=== PATIENT | female | born 1965 | race Caucasian/White ===

== ENCOUNTER 2016-10-31 13:15 | Emergency (ER) | payer OTHER ==
[2016-10-31] MEDS ORDERED: RX INFO: IV CONTRAST WAS GIVEN 1 EACH MISC MISCELLANE PRN (14:09)
[2016-10-31] MEDS ORDERED: SODIUM CHLORIDE 0.9% 1,000 ML IV STA (14:09)
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
[2016-10-31 15:11] LABS: ALT 59 U/L (9-52); AST 55 U/L (14-36); Alkaline Phosphatase 88 U/L (38-126); Anion Gap 9 mmol/L; Blood Urea Nitrogen 11 mg/dL (7-17); Calcium 9.6 mg/dL (8.4-10.2); Carbon Dioxide 31 mmol/L (22-30); Chloride 96 mmol/L (98-107); Glucose 102 mg/dL (74-99); Non-African American GFR(MDRD) >60 (>60 ml/min/1.73 sqM); Potassium 4.4 mmol/L (3.5-5.1); Sodium 136 mmol/L (137-145); Total Bilirubin 0.5 mg/dL (0.2-1.3); Total Protein 7.3 g/dL (6.3-8.2)
[2016-10-31 15:16] LABS: Basophils % (A) 1 %; CH 30.7; CHCM 34.4; Eosinophils # (A) 0.6 k/uL (0-0.7); Eosinophils % (A) 13 %; HCT 38.9 % (34.0-46.0); HDW 2.62; Luc # (Auto) 0.14; Luc % (Auto) 3; Lymphocytes # (A) 1.4 k/uL (1.0-4.8); Lymphocytes % (A) 29 %; MCHC 33.4 g/dL (31.0-37.0); MCV 89.7 fL (80.0-100.0); Mean Platelet Volume 6.9; Monocytes # (A) 0.4 k/uL (0-1.0); Monocytes % (A) 7 %; Neutrophils # (A) 2.3 k/uL (1.3-7.7); Neutrophils % (A) 47 %; RBC 4.33 m/uL (3.80-5.40); RDW 12.9 % (11.5-15.5); WBC 4.8 k/uL (3.8-10.6); WBC (Perox) 5.21
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
[2016-10-31] MEDS ORDERED: ONDANSETRON 4 MG/2 ML VIAL IVP STA (15:51)
[2016-10-31] MEDS ORDERED: HYDROmorphone 1 MG/ML 1 ML SYRINGE IVP STA (15:51)
[2016-10-31 16:11] VITALS: BP 116/55; PULSE 59; RESP 16; TEMP 98.8
== END 2016-10-31 16:10 | disposition home or self-care (01) ==
LOC: EC 13:15
DX: S06.0X0A Concussion without loss of consciousness, initial encounter (principal); M54.2 Cervicalgia; F41.9 Anxiety disorder, unspecified; Z86.69 Personal history of other diseases of the nervous system and sense organs; Z79.891 Long term (current) use of opiate analgesic; Z79.899 Other long term (current) drug therapy; Z88.1 Allergy status to other antibiotic agents; V48.6XXA Car passenger injured in noncollision transport accident in traffic accident, initial encounter; Y92.410 Unspecified street and highway as the place of occurrence of the external cause
CPT/HCPCS: 36415; 80053; 85025; 72125; 70450; 71260; 74177; 99284; 96374; 96375; J2405; J1170; Q9967

== ENCOUNTER → 2019-11-28 | Outpatient (CLI) | payer MEDICARE ==
--- NOTE | 2019-12-04 10:06 | MM ---
Reason for exam: screening (asymptomatic). Last mammogram was performed 7 years and 4 months ago. History: Patient is postmenopausal. Taking estrogen for 1 year. Taking progesterone for 1 year. Taking other hormone for 1 year. Physical Findings: A clinical breast exam by your physician is recommended on an annual basis and results should be correlated with mammographic findings. MG 3D Screening Mammo W/Cad Bilateral CC and MLO view(s) were taken. Prior study comparison: July 18, 2012, mammogram. May 04, 2010, mammogram. The breast tissue is extremely dense which could obscure a lesion on mammography. Focal asymmetry right CC 6.4cm from nipple. ASSESSMENT: Incomplete: need additional imaging evaluation, BI-RAD 0 RECOMMENDATION: Special view mammogram of the right breast. If lesion persists on supplemental views, image directed ultrasound is recommended. [facility] will attempt to contact patient to return for supplemental views and ultrasound if indicated.
== END | disposition home or self-care (01) ==
LOC: RADMAMWWP 13:29
PROVIDERS: ATTEND Obstetrics & Gynecology
DX: Z12.31 Encounter for screening mammogram for malignant neoplasm of breast (principal)
CPT/HCPCS: 77063; 77067

== ENCOUNTER → 2019-12-25 | Outpatient (CLI) | payer MEDICARE ==
--- NOTE | 2019-12-26 08:52 | MM ---
Reason for exam: additional evaluation requested from abnormal screening. Last mammogram was performed 1 month ago. History: Patient is postmenopausal. Taking estrogen for 1 year. Taking progesterone for 1 year. Taking other hormone for 1 year. Physical Findings: Nurse did not find any significant physical abnormalities on exam. MG 3D Work Up W/Cad RT Spot compression CC, spot compression MLO, and LM view(s) were taken of the right breast. Prior study comparison: November 28, 2019, bilateral MG 3d screening mammo w/cad. July 18, 2012, mammogram. The breast tissue is heterogeneously dense. This may lower the sensitivity of mammography. There is chronic nodularity in the right breast. No significant new findings when compared with previous films. These results were verbally communicated with the patient and result sheet given to the patient on 12/25/19. ASSESSMENT: Benign, BI-RAD 2 RECOMMENDATION: Return to routine screening mammogram schedule for both breasts.
== END | disposition home or self-care (01) ==
LOC: RADMAMWWP 13:21
PROVIDERS: ATTEND Obstetrics & Gynecology
DX: R92.8 Other abnormal and inconclusive findings on diagnostic imaging of breast (principal)
CPT/HCPCS: 77065; G0279; 77061

== ENCOUNTER → 2020-03-15 | Outpatient (CLI) | payer MEDICARE ==
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
== END | disposition home or self-care (01) ==
LOC: RADMRIMAIN 10:17
PROVIDERS: ATTEND Physician Assistant
DX: M47.812 Spondylosis without myelopathy or radiculopathy, cervical region (principal); Z98.1 Arthrodesis status
CPT/HCPCS: 72141

== ENCOUNTER → 2021-01-06 | Outpatient (CLI) | payer MEDICARE ==
--- NOTE | 2021-01-08 09:23 | MM ---
Reason for exam: screening (asymptomatic). Last mammogram was performed 1 year ago. History: Patient is postmenopausal. Taking estrogen for 2 years. Taking progesterone for 2 years. Taking other hormone for 1 year. Physical Findings: A clinical breast exam by your physician is recommended on an annual basis and results should be correlated with mammographic findings. MG 3D Screening Mammo W/Cad Bilateral CC and MLO view(s) were taken. Prior study comparison: December 25, 2019, right breast MG 3d work up w/cad RT. November 28, 2019, bilateral MG 3d screening mammo w/cad. The breast tissue is heterogeneously dense. This may lower the sensitivity of mammography. ASSESSMENT: Negative, BI-RAD 1 RECOMMENDATION: Routine screening mammogram of both breasts in 1 year.
== END | disposition home or self-care (01) ==
LOC: RADMAMWWP 15:47
PROVIDERS: ATTEND Obstetrics & Gynecology
DX: Z12.31 Encounter for screening mammogram for malignant neoplasm of breast (principal); Z78.0 Asymptomatic menopausal state; Z79.818 Long term (current) use of other agents affecting estrogen receptors and estrogen levels
CPT/HCPCS: 77063; 77067

== ENCOUNTER → 2022-02-04 | Outpatient (CLI) | payer MEDICARE ==
--- NOTE | 2022-02-05 15:50 | MM ---
Reason for Exam: Screening (asymptomatic). Last mammogram was performed 1 year(s) and 1 month(s) ago. Patient History: Menarche at age 15. First Full-Term at age 24. Postmenopausal. Currently using Estrogen, for 2 years. Currently using Progesterone, for 2 years. Risk Values: Kymberly 5 year model risk: 1.0%. NCI Lifetime model risk: 6.5%. Prior Study Comparison: 11/28/2019 Bilateral Screening Mammogram, [facility]. 12/25/2019 Right Diagnostic Mammogram, [facility]. 01/06/2021 Bilateral Screening Mammogram, [facility]. Tissue Density: The breast tissue is heterogeneously dense. This may lower the sensitivity of mammography. Findings: Analyzed By CAD. There is no suspicious group of microcalcifications or new suspicious mass in either breast. Overall Assessment: Negative, BI-RAD 1 Management: Screening Mammogram of both breasts in 1 year. A clinical breast exam by your physician is recommended on an annual basis and results should be correlated with mammographic findings. Electronically signed and approved by: Miller Shaffer M.D. Radiologis
== END | disposition home or self-care (01) ==
LOC: RADMAMWWP 09:41
PROVIDERS: ATTEND Obstetrics & Gynecology
DX: Z12.31 Encounter for screening mammogram for malignant neoplasm of breast (principal); Z78.0 Asymptomatic menopausal state
CPT/HCPCS: 77063; 77067

== ENCOUNTER → 2023-12-08 | Outpatient (CLI) | payer MEDICARE ==
--- NOTE | 2023-12-12 14:15 | MM ---
Reason for Exam: Screening (asymptomatic). Last mammogram was performed 1 year(s) and 10 month(s) ago. Patient History: Menarche at age 15. First Full-Term at age 24. Postmenopausal. Patient used Estrogen for 2 years. Patient used Progesterone for 2 years. Risk Values: Kymberly 5 year model risk: 1.1%. NCI Lifetime model risk: 6.3%. Prior Study Comparison: 12/25/2019 Right Diagnostic Mammogram, [facility]. 01/06/2021 Bilateral Screening Mammogram, [facility]. 02/04/2022 Bilateral MG 3D screening mammo w/cad, [facility]. Tissue Density: There are scattered areas of fibroglandular density. Findings: Analyzed By CAD. Right breast: There is no suspicious group of microcalcifications or new suspicious mass. Left breast: There is no suspicious group of microcalcifications or new suspicious mass. Overall Assessment: Negative, BI-RAD 1 Management: Screening Mammogram of both breasts in [address] [facility] will attempt to contact patient to return for supplemental views and ultrasound if indicated. Patient should continue monthly self-breast exams. A clinical breast exam by your physician is recommended on an annual basis. This exam should not preclude additional follow-up of suspicious palpable abnormalities. Note on Kymberly scores and lifetime risk: 1. A Kymberly score greater than 3% is considered moderate risk. If this is the case, consider specialist referral to assess eligibility for a risk reducing agent. 2. If overall lifetime risk for the development of breast cancer is 20% or higher, the patient may qualify for future screening with alternating mammogram and breast MRI. Electronically signed and approved by: Crow Crisostomo DO
== END | disposition home or self-care (01) ==
LOC: RADMAMWWP 12:21
PROVIDERS: ATTEND Family Medicine
DX: Z12.31 Encounter for screening mammogram for malignant neoplasm of breast (principal)
CPT/HCPCS: 77063; 77067

== ENCOUNTER → 2024-04-16 | Outpatient (CLI) | payer MEDICARE ==
--- NOTE | 2024-04-17 09:28 | MR ---
EXAMINATION TYPE: MR lumbar spine wo con DATE OF EXAM: 04/16/2024 COMPARISON: CT chest abdomen and pelvis 10/31/2016 HISTORY: low back pain that radiates down both legs x4 months TECHNIQUE: Motion degraded exam. Multiplanar, multisequence images of the lumbar spine were acquired without IV contrast. FINDINGS: The lumbar vertebral bodies do have preserved heights and alignment. Sacralization of the L5 vertebral body. Minimal multilevel disc desiccation is present. The conus medullaris and the dis checo spinal cord do appear unremarkable with regards to their signal intensity and morphology. Suscept ibility artifact from fixation hardware involving the left proximal femur on survey imaging. Incident al small sacral Tarlov cysts. L1-L2: No significant disc pathology is identified. The spinal canal and neural foramen are patent. L2-L3: No significant disc pathology is identified. The spinal canal and neural foramen are patent. L3-L4: No significant disc pathology is identified. The spinal canal is patent. Bilateral facet join t enlargement. Right neuroforamen is patent. Mild left neural foraminal narrowing. L4-L5: No disc herniation or significant mass effect on the thecal sac. Bilateral facet joint enlarg ement. Right neuroforamen is patent. Mild left neural foraminal narrowing. L5-S1: No disc herniation or significant mass effect upon the thecal sac. Facet joints are enlarged. Neural canals do remain patent. Other significant findings: Prominent right extrarenal pelvis. IMPRESSION: No definitive evidence for disc herniation or significant spinal canal stenosis. Lower lumbar spine f acet arthropathy with mild left neural foraminal narrowing at L3-L4 and L4-L5. Sacralization of the L 5 vertebral body. [facility], , 04/17/2024 9:25 AM
== END | disposition home or self-care (01) ==
LOC: RADMRIMAIN 17:00
PROVIDERS: ATTEND Physical Medicine & Rehabilitation
DX: M54.16 Radiculopathy, lumbar region
CPT/HCPCS: 72148

== ENCOUNTER → 2024-06-04 | Outpatient (CLI) | payer MEDICARE ==
--- NOTE | 2024-06-04 18:04 | XR ---
EXAMINATION TYPE: XR abdomen 2V DATE OF EXAM: 06/04/2024 4:07 PM COMPARISON: None CLINICAL INDICATION: Female, 59 years old with history of CHECK FOR STOOL BURDEN; [facility] TECHNIQUE: Two views of the abdomen were obtained. FINDINGS: Moderate amount stool throughout the colon. The bowel gas pattern is nonspecific without di lated loops of small or large bowel. There is no evidence for organomegaly or pneumoperitoneum. The osseous structures are intact. No abnormal calcifications are present. Fecal material and gas are de monstrated throughout the colon and rectum. Right upper quadrant cholecystectomy clips. Left hip fix ation hardware is intact. Multilevel degeneration changes of the spine. IMPRESSION: 1. Moderate stool burden throughout the colon. 2. Nonspecific bowel gas pattern without radiographic evidence for acute process. [facility], , 06/04/2024 6:02 PM
== END | disposition home or self-care (01) ==
LOC: RADXRMAIN 15:37
PROVIDERS: ATTEND Family Medicine
DX: R19.5 Other fecal abnormalities (principal); Z90.49 Acquired absence of other specified parts of digestive tract
CPT/HCPCS: 74019

== ENCOUNTER → 2024-09-05 | Outpatient (CLI) | payer MEDICARE ==
[2024-09-05 18:33] LABS: Basophils # (A) 0.03 X 10*3/uL (0.00-0.10); Basophils % (A) 0.5 %; Eosinophils # (A) 0.35 X 10*3/uL (0.04-0.35); Eosinophils % (A) 6.2 %; HGB 11.6 g/dL (12.0-15.0); Lymphocytes # (A) 1.13 X 10*3/uL (0.90-5.00); Lymphocytes % (A) 20.1 %; MCH 28.8 pg (27.0-32.0); MCHC 32.2 g/dL (32.0-37.0); MCV 89.3 FL (80.0-97.0); Mean Platelet Volume 9.5 FL (9.5-12.2); Monocytes # (A) 0.68 X 10*3/uL (0.20-1.00); Monocytes % (A) 12.1 %; NRBC Per 100 WBC 0 X 10*3/uL (0.00-0.01); Neutrophils % (A) 60.7 %; Platelet Count 288 X 10*3/uL (140-440); RBC 4.03 X 10*6/uL (4.10-5.20); RDW 12.5 % (11.5-14.5); WBC 5.61 X 10*3/uL (4.50-10.00)
[2024-09-05 18:58] LABS: Erythrocyte Sedimentation Rate 19 mm/Hr (0-30)
[2024-09-05 19:03] LABS: % Iron Saturation 24.33 (12.00-45.00); ALT 23 U/L (8-44); AST 25 U/L (13-35); Albumin 3.8 g/dL (3.8-4.9); Albumin/Globulin Ratio 1.46 Ratio (1.60-3.17); Alkaline Phosphatase 125 U/L (41-126); Blood Urea Nitrogen 10.5 mg/dL (9.0-27.0); Calcium 9.1 mg/dL (8.7-10.3); Carbon Dioxide 29.2 mmol/L (21.6-31.8); Chloride 101 mmol/L (96-109); Chol/HDL Ratio 2.35 Ratio; Creatine Kinase 126 U/L (26-186); Estradiol <20.0 pg/mL; Ferritin 38.6 ng/mL (10.0-291.0); Globulin 2.6 g/dL (1.6-3.3); Glucose 104 mg/dL (70-110); Iron 82 UG/DL (50-170); LDL Cholesterol,Calculated 67.6 mg/dL (0.0-131.0); Magnesium 2.1 mg/dL (1.5-2.4); Potassium 4.1 mmol/L (3.5-5.5); Sodium 140 mmol/L (135-145); T4, Free (Free Thyroxine) 0.67 ng/dL (0.80-1.80); Total Bilirubin 0.2 mg/dL (0.3-1.2); Total Iron Binding Capacity 337 UG/DL (228-460); Total Protein 6.4 g/dL (6.2-8.2); VLDL Calculation 15.72 mg/dL (5.00-40.00)
[2024-09-05 19:32] LABS: Rheumatoid Factor, Qnt <15 IU/mL (0-15)
[2024-09-05 19:33] LABS: Testosterone <10.00 ng/dL (7.00-45.62)
[2024-09-05 21:59] LABS: NT-Pro-B-Type Natriuretic Pept 206 pg/mL (0-125)
[2024-09-06 05:16] LABS: Anti-Smith Ab Interp Negative (Negative); JO-1 IgG Antibody <0.2 AI
[2024-09-06 11:33] LABS: Free Kappa Lt Chain Qnt, Serum 3.07 mg/dL (0.33-1.94); Free Lambda Lt Chain Qnt, Seru 3.55 mg/dL (0.57-2.63)
[2024-09-06 12:28] LABS: Protein, Total 6.6 g/dL (6.2-8.2)
[2024-09-07 09:57] LABS: Aldolase 6.3 U/L (1.2-7.6)
== END | disposition home or self-care (01) ==
LOC: LABWHC1 13:12
PROVIDERS: ATTEND Family Medicine
DX: M79.89 Other specified soft tissue disorders (principal); L53.9 Erythematous condition, unspecified; Z80.7 Family history of other malignant neoplasms of lymphoid, hematopoietic and related tissues; Z83.3 Family history of diabetes mellitus; Z79.890 Hormone replacement therapy
CPT/HCPCS: 36415; 80053; 80061; 81374; 82085; 82550; 82607; 82670; 82728; 82746; 83036; 83540; 83550; 83735; 83874; 83880; 83883; 84144; 84165; 84403; 84425; 84439; 84443; 85025; 85652; 86038; 86140; 86160; 86235; 86334; 86431

== ENCOUNTER → 2024-10-26 | Outpatient (CLI) | payer MEDICARE ==
--- NOTE | 2024-10-26 17:09 | CA ---
Transthoracic Echo Report Name: Corazon Islas Age: 59 Gender: F : 1965 Exam Date: 10/26/2024 15:06 Exam Location: [facility] Ht (in): 64 Wt (lb): 145 Ordering Physician: Chago Merritt DO Attending/Referring Phys: Chago Merritt DO Network Admin Adilene Disla RDCS Procedure CPT: Indications: R60.0 LOCALIZED EDEMA Cardiac Hx: Technical Quality: Fair Contrast 1: Total Dose (mL): Contrast 2: Total Dose (mL): MEASUREMENTS (Male / Female) Normal Values 2D ECHO LV Diastolic Diameter PLAX 3.8 cm 4.2 - 5.9 / 3.9 - 5.3 cm LV Systolic Diameter PLAX 2.1 cm IVS Diastolic Thickness 1.2 cm 0.6 - 1.0 / 0.6 - 0.9 cm LVPW Diastolic Thickness 1.3 cm 0.6 - 1.0 / 0.6 - 0.9 cm LV Relative Wall Thickness 0.7 RV Internal Dim ED PLAX 2.7 cm LA Systolic Diameter LX 4.1 cm 3.0 - 4.0 / 2.7 - 3.8 cm LV Diastolic Volume MOD BP 55.3 cm??? 67 - 155 / 56 - 104 cm??? LV Systolic Volume MOD BP 15.3 cm??? 22 - 58 / 19 - 49 cm??? LV Ejection Fraction MOD BP 72.4 % >= 55 % LV Cardiac Index MOD BP 1868.7 cm???/min???m??? LV Diastolic Volume MOD 4C 47.6 cm??? LV Systolic Volume MOD 4C 15.4 cm??? LV Ejection Fraction MOD 4C 67.5 % LV Cardiac Index MOD 4C 1499.6 cm???/min???m??? LV Diastolic Length 4C 5.5 cm LV Systolic Length 4C 4.3 cm LV Diastolic Volume MOD 2C 61.0 cm??? LV Systolic Volume MOD 2C 14.9 cm??? LV Ejection Fraction MOD 2C 75.6 % LV Cardiac Index MOD 2C 2153.2 cm???/min???m??? LV Diastolic Length 2C 5.9 cm LV Systolic Length 2C 4.2 cm M-MODE Aortic Root Diameter MM 2.9 cm LA Systolic Diameter MM 4.0 cm LA Ao Ratio MM 1.4 AV Cusp Separation MM 1.9 cm DOPPLER Mitral E Point Velocity 99.3 cm/s Mitral A Point Velocity 82.6 cm/s Mitral E to A Ratio 1.2 MV Deceleration Time 248.0 ms MV E' Velocity 5.4 cm/s Mitral E to MV E' Ratio 18.2 FINDINGS Left Ventricle Left ventricular ejection fraction is estimated at 55-60 %. Mildly increased septal wall thickness. Moderately increased posterior wall thickness. Normal left ventricular systolic function with no obvious regional wall motion abnormalities. Left ventricular cavity size normal. Right Ventricle Normal right ventricular size and function. Unable to estimate the right ventricular systolic pressure. Right Atrium Mild right atrial dilatation. Left Atrium Mildly increased left atrial diameter. Mitral Valve Structurally normal mitral valve. Trace mitral regurgitation. No mitral stenosis. Aortic Valve Trileaflet aortic valve. No aortic valve stenosis or regurgitation. Tricuspid Valve Structurally normal tricuspid valve. Trace tricuspid regurgitation. No tricuspid stenosis. Pulmonic Valve Structurally normal pulmonic valve. Trace pulmonic regurgitation. No pulmonic stenosis. Pericardium Small pericardial effusion without tamponade physiology Aorta Normal size aortic root and proximal ascending aorta. CONCLUSIONS Left ventricular ejection fraction 55 to 60% Mild to moderately increased left ventricular wall thickness Trace mitral regurgitation Trace tricuspid regurgitation Small pericardial effusion without tamponade physiology Previewed by: Dr. Russell Lorenzana DO (Electronically Signed) Final Date: 26 Oct 2024 17:08
== END | disposition home or self-care (01) ==
LOC: RADECHMAIN 14:30
PROVIDERS: ATTEND Family Medicine
DX: I31.39 Other pericardial effusion (noninflammatory) (principal); I08.1 Rheumatic disorders of both mitral and tricuspid valves
CPT/HCPCS: 93306

== ENCOUNTER → 2024-11-05 | Outpatient (CLI) | payer MEDICARE ==
[2024-11-05 19:02] LABS: T4, Free (Free Thyroxine) 0.68 ng/dL (0.80-1.80)
== END | disposition home or self-care (01) ==
LOC: LABWHC1 16:09
PROVIDERS: ATTEND Family Medicine
DX: E03.8 Other specified hypothyroidism (principal)
CPT/HCPCS: 36415; 84439; 84443

== ENCOUNTER → 2024-12-27 | Outpatient (CLI) | payer MEDICARE | END | disposition home or self-care (01) | LOC: RADMAMWWP 14:29 | PROVIDERS: ATTEND Family Medicine | DX: Z53.9 Procedure and treatment not carried out, unspecified reason (principal) ==